=== PATIENT | male | born 1960 | race Caucasian/White ===

== ENCOUNTER 2017-07-28 17:47 | Emergency (ER) | payer BC ==
[2017-07-28 19:38] LABS: BASOPHILS % (AUTO) 0.2 %; EOSINOPHILS % (AUTO) 0.2 %; HGB - HEMOGLOBIN 12.4 g/dL (14.0-18.0); LYMPHOCYTES # (AUTO) 0.9 10^3/uL (1.5-3.5); LYMPHOCYTES % (AUTO) 5.7 %; MEAN CORPUSCULAR HEMOGLOBIN 28.2 pg (27.0-31.0); MEAN CORPUSCULAR HGB CONC 32.7 g/dL (32.0-36.0); MEAN CORPUSCULAR VOLUME 86.4 fL (80.0-94.0); MEAN PLATELET VOLUME 7.5 fL (7.4-11.4); MONOCYTES # (AUTO) 1.3 10^3/uL (0.0-1.0); MONOCYTES % (AUTO) 8.6 %; NEUTROPHILS # (AUTO) 12.8 10^3/uL (1.5-6.6); NEUTROPHILS % (AUTO) 85.3 %; PLT - PLATELET COUNT 228 10^3/uL (130-450); RED BLOOD COUNT 4.39 10^6/uL (4.70-6.10); RED CELL DISTRIBUTION WIDTH 13.3 % (12.0-15.0)
[2017-07-28 19:48] LABS: GLUCOSE, URINE (UA) NEGATIVE (NEGATIVE); KETONES,URINE (UA) NEGATIVE (NEGATIVE); LEUKOCYTE ESTERASE, URINE NEGATIVE (NEGATIVE); NITRITE,URINE NEGATIVE (NEGATIVE); OCCULT BLOOD,URINE SMALL (NEGATIVE); PROTEIN,URINE 30 mg/dL (NEGATIVE); UROBILINOGEN,URINE 0.2 (NORMAL) E.U./dL (NORMAL)
[2017-07-28 19:50] LABS: ALBUMIN 3.4 g/dL (3.2-5.5); ALBUMIN/GLOBULIN RATIO 0.8 (1.0-2.2); BILIRUBIN,TOTAL 0.9 mg/dL (0.2-1.0); CALCIUM 8.2 mg/dL (8.5-10.3); CREATININE 2.6 mg/dL (0.6-1.2); TOTAL PROTEIN 7.9 g/dL (6.7-8.2)
[2017-07-28 19:52] LABS: BILIRUBIN,URINE NEGATIVE (NEGATIVE); CLARITY,URINE CLOUDY (CLEAR); ICTOTEST,URINE NEGATIVE
[2017-07-28 20:01] LABS: AMORPHOUS SEDIMENT,UR Marked /LPF; BACTERIA,URINE None Seen /HPF (None Seen); CASTS, URINE >50 Hyaline Casts /LPF; RBC,URINE None Seen /HPF (0-5); SQUAMOUS EPITHELIAL CELL,UR FEW Squamous (<= Few)
[2017-07-28] MEDS ORDERED: cefTRIAXone 1 GM in SODIUM CHLORIDE 0.9% MINIBAG 100 ML IV STA (20:15)
[2017-07-28] MEDS ORDERED: ONDANSETRON 4 MG/2 ML VIAL IVP STA (20:15)
[2017-07-28] MEDS ORDERED: SODIUM CHLORIDE 0.9% 1,000 ML IV ONE (20:15)
--- NOTE | 2017-07-28 22:30 | Ultrasound Preliminary Report ---
Exam: US DUPLEX EXT VEINS LEFT IMPRESSION: No evidence for deep venous thrombosis. Suboptimal visualization due to edema and swellin g. See above. [facility] SITE ID: [id number]
--- NOTE | 2017-07-28 22:30 | Ultrasound Report ---
EXAM: LEFT LOWER EXTREMITY VENOUS ULTRASOUND EXAM DATE: 07/28/2017 09:56 PM. CLINICAL HISTORY: Unilateral leg swelling. COMPARISON: None. TECHNIQUE: Real-time sonographic vascular imaging was performed by the land use planner through the lower extremity utilizing both color-flow and Doppler spectral analysis. Multiple new accounts representative static mikki ges were saved for review. FINDINGS: Common Femoral Vein (CFV): Normal. CFV-GSV Junction: Normal. Profunda Femoral Vein (PFV): Normal. Femoral Vein (FV) Prox: Normal. Femoral Vein (FV) Mid: Limited visualization. No thrombosis seen. Femoral Vein (FV) Dist: Limited visualization. No thrombosis seen. Popliteal Vein: Normal. Posterior Tibial Veins: Limited visualization. No thrombosis seen. Peroneal Veins: Normal. Other: Suboptimal visualization due to edema and swelling. IMPRESSION: No evidence for deep venous thrombosis. Suboptimal visualization due to edema and swellin g. See above. [facility] Referring Provider Line: [phone] SITE ID: [id number]
--- NOTE | 2017-07-28 22:37 | ED Physician Documentation ---
History of Present Illness - Stated complaint Stated Complaint: FEVER/VOMITING/DIARRHEA - Chief complaint Chief Complaint: General - History obtained from History obtained from: Patient - History of Present Illness Timing: Yesterday - Additonal information Additional information: Patient is a 57 year old diabetic male who is presenting to the emergency department for nausea, vomiting, fever and leg swelling. patient states that the symptoms started on friday but he did not want to come to the emergency department. His was able to convince him to come today because his leg was become more swollen and painful. Review of Systems Constitutional: reports: Fever Respiratory: denies: Cough GI: reports: Nausea, Vomiting, Diarrhea. denies: Abdominal Pain : denies: Dysuria, Frequency, Hesitancy Skin: reports: Rash, Lesions Musculoskeletal: reports: Extremity pain, Extremity swelling PD PAST MEDICAL HISTORY - Past Medical History Past Medical History: Yes Other Past Medical History: T2DM - Past Surgical History Past Surgical History: No - Present Medications Home Medications: Ambulatory Orders Medication Instructions Recorded Confirmed Amlodipine Besylate [Norvasc] 25 mg PO DAILY 07/28/17 07/28/17 Cephalexin [Keflex] 500 mg PO Q6H 7 Days capsule 07/28/17 Glipizide 5 mg PO DAILY 07/28/17 07/28/17 Lisinopril 20 mg PO DAILY 07/28/17 07/28/17 Ondansetron Odt [Zofran] 4 mg TL Q6H PRN #14 tablet 07/28/17 metFORMIN [Glucophage] 1,000 mg PO BIDWM 07/28/17 07/28/17 - Allergies Allergies/Adverse Reactions: Allergies Allergy/AdvReac Type Severity Reaction Status Date / Time No Known Drug Allergies Allergy Verified 07/28/17 18:48 - Social History Does the pt smoke?: No Smoking Status: Never smoker PD ED PE NORMAL - Vitals Vital signs reviewed: Yes - General General: Alert and oriented X 3, No acute distress - HEENT HEENT: Atraumatic - Neck Neck: Supple, no meningeal sign - Cardiac Cardiac: RRR, No murmur - Respiratory Respiratory: No respiratory distress - Abdomen Abdomen: Soft, Non tender, Non distended - Neuro Neuro: Alert and oriented X 3, No motor deficit, No sensory deficit, Normal speech Eye Opening: Spontaneous Motor: Obeys Commands Verbal: Oriented GCS Score: 15 - Psych Psych: Normal mood PD ED PE EXPANDED - HEENT HEENT: Dry mucous membranes - Extremities Extremities: Left leg (tenderness, erythema and swelling of patient's left ankle going up to mid thigh), Left ankle. No: Abrasion, Laceration Results - Vitals Vitals: Vital Signs - 24 hr 07/28/17 07/28/17 07/28/17 18:45 19:25 20:36 Temperature 36.4 C L Heart Rate 100 107 H 95 Respiratory 18 16 18 Rate Blood Pressure 140/68 H 126/77 132/68 H O2 Saturation 99 97 99 07/28/17 07/28/17 21:16 22:45 Temperature Heart Rate 95 Respiratory 18 Rate Blood Pressure 127/65 129/66 O2 Saturation 97 Oxygen O2 Source Room air - Labs Labs: Laboratory Tests 07/28/17 07/28/17 07/28/17 19:30 19:30 19:30 WBC 15.0 H RBC 4.39 L Hgb 12.4 L Hct 37.9 L MCV 86.4 MCH 28.2 MCHC 32.7 RDW 13.3 Plt Count 228 MPV 7.5 Neut # 12.8 H Lymph # 0.9 L [place] # 1.3 H Eos # 0.0 Baso # 0.0 Absolute Nucleated RBC 0.01 Nucleated RBC % 0.0 D-Dimer > 1050.0 H Sodium 128 L Potassium 4.0 Chloride 96 L Carbon Dioxide 20 L Anion Gap 12.0 BUN 44 H Creatinine 2.6 H Estimated GFR (MDRD) 25 L Glucose 155 H Calcium 8.2 L Total Bilirubin 0.9 AST 29 ALT 31 Alkaline Phosphatase 61 Total Protein 7.9 Albumin 3.4 Globulin 4.5 H Albumin/Globulin Ratio 0.8 L Lipase 49 Urine Color Urine Clarity Urine pH Ur Specific [place] Urine Protein Urine Glucose (UA) Urine Ketones Urine Occult Blood Urine Nitrite Urine Bilirubin Urine Urobilinogen Ur Leukocyte Esterase Urine RBC Urine WBC Ur Squamous Epith Cells Amorphous Sediment Urine Bacteria Urine Casts Ur Microscopic Review Urine Culture Comments 07/28/17 19:41 WBC RBC Hgb Hct MCV MCH MCHC RDW Plt Count MPV Neut # Lymph # [place] # Eos # Baso # Absolute Nucleated RBC Nucleated RBC % D-Dimer Sodium Potassium Chloride Carbon Dioxide Anion Gap BUN Creatinine Estimated GFR (MDRD) Glucose Calcium Total Bilirubin AST ALT Alkaline Phosphatase Total Protein Albumin Globulin Albumin/Globulin Ratio Lipase Urine Color YELLOW Urine Clarity CLOUDY Urine pH 5.0 Ur Specific [place] >=1.030 H Urine Protein 30 H Urine Glucose (UA) NEGATIVE Urine Ketones NEGATIVE Urine Occult Blood SMALL H Urine Nitrite NEGATIVE Urine Bilirubin NEGATIVE Urine Urobilinogen 0.2 (NORMAL) Ur Leukocyte Esterase NEGATIVE Urine RBC None Seen Urine WBC 0-3 Ur Squamous Epith Cells FEW Squamous Amorphous Sediment Marked Urine Bacteria None Seen Urine Casts >50 Hyaline Casts Ur Microscopic Review INDICATED Urine Culture Comments NOT INDICATED PD MEDICAL DECISION MAKING - ED course Complexity details: reviewed old records, reviewed results, re-evaluated patient , considered differential, d/w patient, d/w family ED course: Patient was seen and examined at bedside. Patient was well appearing. IV access was gained and labs were drawn. Patient was started on a fluid bolus. Patient had no risk factor for mrsa and findings were consistent with cellulitis and patient was started on rocephin. D-dimer had been ordered in triage and was elevated so ultrasound was ordered, and was within normal limits. patient was made aware of his kidney function and other lab abnormalities and he and his stated they would follow up with their doctor this week. patient was able to tolerate PO, was well appearing and wanted to return home. Patient and family were given detailed discharge and follow up instructions. Patient required no further work up and was stable for outpatient follow up. Departure - Departure Disposition: 01 Home, Self Care Clinical Impression: Cellulitis Condition: Good Instructions: ED Infec Skin Cellulitis Follow-Up: Jaswinder Olivera MD [Primary Care Provider] - Prescriptions: Cephalexin [Keflex] 500 mg PO Q6H 7 Days capsule Ondansetron Odt [Zofran] 4 mg TL Q6H PRN #14 tablet PRN Reason: Nausea / Vomiting Comments: Your symptoms are being caused by cellulitis. You had your first dose of antibiotics and will need to be on them for the next week. You should make sure you stay well hydrated. Your kidney function today was abnormal and is likely in part due to dehydration and your diabetes. It is important that you follow up with your doctor this week for re-evaluation. You should return to the emergency department for worsening symptoms. Forms: Activity restrictions Discharge Date/Time: 07/28/17 22:51
[2017-07-28 22:45] VITALS: BP 129/66
== END 2017-07-28 22:51 | disposition home or self-care (01) ==
LOC: ED 17:47
DX: L03.116 Cellulitis of left lower limb (principal); E11.9 Type 2 diabetes mellitus without complications; Z79.84 Long term (current) use of oral hypoglycemic drugs
CPT/HCPCS: 36415; 80053; 81001; 81003; 83690; 85025; 85379; 87086; 96365; 96375; 99283